=== PATIENT | female | born 1975 | race African-American/Black ===

== ENCOUNTER 2019-03-31 09:57 | Day surgery (SDC) | payer OTHER ==
[2019-03-30 17:20] VITALS: BMI 41.6
[2019-03-31 10:44] LABS: HEMATOCRIT 40.6 % (32.4-45.2); HEMOGLOBIN 13.2 GM/dL (10.7-15.3); MCH 28.7 pg (25.7-33.7); MCHC 32.6 g/dl (32.0-36.0); MEAN CELL VOLUME 88.1 fl (80-96); MEAN PLT VOLUME 9.6 fl (7.5-11.1); PLATELET COUNT 253 K/MM3 (134-434); RBC 4.61 M/mm3 (3.60-5.2); WHITE BLOOD COUNT 5.5 K/mm3 (4.0-10.0)
[2019-03-31 11:11] LABS: ALBUMIN 3.6 g/dl (3.4-5.0); BLOOD UREA NITROGEN 5.7 mg/dL (7-18); CALCIUM 8.9 mg/dL (8.5-10.1); CREATININE 0.6 mg/dL (0.55-1.3); POTASSIUM 3.9 mmol/L (3.5-5.1); TOT PROT 7.1 g/dl (6.4-8.2)
[2019-03-31] MEDS ORDERED: ACETAMINOPHEN 325 MG TABLET (FP) PO PRN (11:29)
[2019-03-31] MEDS ORDERED: IBUPROFEN 400 MG TABLET (FP) PO PRN (11:29)
--- NOTE | 2019-03-31 11:29 | HP ---
History & Physical Update - History History: No Change - Physical Physical: No Change - Assessment Assessment: No Change - Plan Plan: No Change (No change in HP)
[2019-03-31] MEDS ORDERED: KETOROLAC TROMETHAMINE 30 MG/1 ML VIAL ONE (11:38)
[2019-03-31] MEDS ORDERED: DEXAMETHASONE SOD PHOSPHATE 4 MG/1 ML VIAL ONE (11:38)
[2019-03-31] MEDS ORDERED: MIDAZOLAM HCL 2 MG/2 ML SINGLE DOSE VIAL ONE (11:38)
[2019-03-31] MEDS ORDERED: PROPOFOL 20 ML ONE ×2 (11:38)
[2019-03-31] MEDS ORDERED: ONDANSETRON 4 MG/2 ML VIAL IVPUSH PRN (12:47)
[2019-03-31] MEDS ORDERED: oxyCODONE HCL 5 MG TABLET PO PRN (12:47)
[2019-03-31] MEDS ORDERED: LACTATED RINGERS SOLUTION 1,000 ML IV SCH (13:00)
[2019-03-31] MEDS ORDERED: oxyCODONE HCL 5 MG TABLET ONE (13:03)
--- NOTE | 2019-03-31 13:08 | OP ---
DATE OF OPERATION: 03/31/2019 PREOPERATIVE DIAGNOSIS: Missed . OPERATION: Suction dilation and curettage. POSTOPERATIVE DIAGNOSIS: Missed . SURGEON: Jailyn Higgins MD ANESTHESIA: General. DESCRIPTION OF PROCEDURE: Patient was taken to the operating room, placed in dorsal lithotomy position, prepped and draped in the usual sterile fashion. Time-out was performed in accordance with hospital regulation. Speculum was placed in the vagina. Anterior lip of the cervix was grasped with a single-tooth tenaculum. Cervix was then dilated to accommodate the No. 7 suction curette. Suction curettage was then done followed by a sharp curettage. All contents were removed. Specimen was submitted to Pathology. All instruments were then removed. Patient had tolerated procedure well and was taken to recovery in stable condition. Estimated blood loss 30 mL. JAILYN HIGGINS M.D. [id number]
[2019-03-31 13:48] VITALS: TEMP 98.5
[2019-03-31 14:40] VITALS: BP 119/70; PULSE 62
--- NOTE | 2019-04-04 18:09 | PATH ---
Surgical Pathology Report Patient Name: MADELINE CISNEROS Med. Rec. #: [id number] /Age/Gender: 1975 (Age: 43) / F Account: [id number] Location: [facility] SURGICAL Taken: 03/31/2019 Received: 03/31/2019 Reported: 04/04/2019 Physicians: Jailyn Higgins M.D. Specimen(s) Received PRODUCTS OF CONCEPTION Clinical History Missed Final Diagnosis PRODUCTS OF CONCEPTION, SUCTION DILATION AND CURETTAGE: IMMATURE CHORIONIC VILLI AND DECIDUA CONSISTENT WITH PRODUCTS OF CONCEPTION. Electronically Signed Jocelyn Lopez M.D. Gross Description Received in formalin labeled "products of conception," is an 8.5 x 6.7 x 1.0 cm aggregate of sawyer-brown soft tissue fragments admixed with blood clot. Villous tissue is identified. No definite somatic tissue is identified. A small business representative portion is submitted in one cassette. 04/01/2019 saudi04/01/2019
== END 2019-03-31 15:20 | disposition home or self-care (01) ==
LOC: JASU-SURG 09:57
PROVIDERS: ATTEND Obstetrics & Gynecology
PROC: 10D17ZZ Extraction of Products of Conception, Retained, Via Natural or Artificial Opening (ICD-10-PCS; principal; 2019-03-31 12:30)
DX: O02.1 Missed abortion (principal)
CPT/HCPCS: 36415; 80053; 84703; 85027; 86850; 86900; 86901; 88305-TC; 94760

== ENCOUNTER 2020-03-01 10:44 | Emergency (ER) | payer OTHER ==
[2020-03-01 11:05] VITALS: BP 141/83; PULSE 61; TEMP 98.5; BMI 42.3
--- OUTSIDE RECORDS SUMMARY | 2020-03-01 11:39 | XMS ---
:1975 Author Organization [facility] Support Name Relationship Address Phone [facility] Unavailable [address] [place] [address] [address] [place] [address] Re-disclosure Warning The records that you are about to access may contain information from federally- assisted alcohol or drug abuse programs. If such information is present, then the following federally mandated warning applies: This information has been disclosed to you from records protected by federal confidentiality rules (42 CFR part 2). The federal rules prohibit you from making any further disclosure of this information unless further disclosure is expressly permitted by the written consent of the person to whom it pertains or as otherwise permitted by 42 CFR part 2. A general authorization for the release of medical or other information is NOT sufficient for this purpose. The Federal rules restrict any use of the information to criminally investigate or prosecute any alcohol or drug abuse patient.The records that you are about to access may contain highly sensitive health information, the redisclosure of which is protected by Article 27-F of the [facility] Public Health law. If you continue you may haveaccess to information: Regarding HIV / AIDS; Provided by facilities licensed or operated by the [facility] Office of Mental Health; or Provided by the [facility] Office for People With Developmental Disabilities. If such information is present, then the following [facility] mandated warning applies: This information has been disclosed to you from confidential records which are protected by state law. State law prohibits you from making any further disclosure of this information without the specific written consent of the person to whom it pertains, or as otherwise permitted by law. Any unauthorized further disclosure in violation of state law may result in a fine or mcc sentence or both. A general authorization for the release of medical or other information is NOT sufficient authorization for further disclosure. Insurance Providers Payer name Policy type / Policy ID Covered Covered democrat's Policy Plan Coverage type democrat ID relationship to [place] Information ja[place]gui [employer] HMO [id number] SP [id number] 3 Results ID Date Data Source [id number] 11/08/2019 03:18:00 PM EDT [facility] Name Value Range Interpretation Description Data Sup porting Code Source(s) Document(s ) [facility] Coronavirus 2 RNA Presence Respiratory Specimen ALFREDO Probe Detection This lab was ordered by [facility] and rep orted by [facility]. ID Date Data Source [id number] 11/04/2019 03:37:00 PM EDT [facility] Name Value Range Interpretation Description Data Sup porting Code Source(s) Document(s ) [facility] Coronavirus 2 RNA Presence Respiratory Specimen ALFREDO Probe Detection This lab was ordered by [facility] and rep orted by [facility]. ID Date Data Source [id number] 11/01/2019 04:49:00 PM EDT [facility] Name Value Range Interpretation Description Data Sup porting Code Source(s) Document(s ) [facility] Coronavirus 2 RNA Presence Respiratory Specimen ALFREDO Probe Detection This lab was ordered by [facility] and rep orted by [facility]. ID Date Data Source [id number] 10/29/2019 03:28:00 PM EDT [facility] Name Value Range Interpretation Description Data Sup porting Code Source(s) Document(s ) [facility] Coronavirus 2 RNA Presence Respiratory Specimen ALFREDO Probe Detection This lab was ordered by [facility] and rep orted by [facility]. ID Date Data Source [id number] 10/25/2019 03:43:00 PM EDT [facility] Name Value Range Interpretation Description Data Sup porting Code Source(s) Document(s ) [facility] Coronavirus 2 RNA Presence Respiratory Specimen ALFREDO Probe Detection This lab was ordered by [facility] and rep orted by [facility]. ID Date Data Source [id number] 10/21/2019 03:37:00 PM EDT [facility] Name Value Range Interpretation Description Data Sup porting Code Source(s) Document(s ) [facility] Coronavirus 2 RNA Presence Respiratory Specimen ALFREDO Probe Detection This lab was ordered by [facility] and rep orted by [facility]. ID Date Data Source [id number] 10/18/2019 03:21:00 PM EDT [facility] Name Value Range Interpretation Description Data Sup porting Code Source(s) Document(s ) [facility] Coronavirus 2 RNA Presence Respiratory Specimen ALFREDO Probe Detection This lab was ordered by [facility] and rep orted by [facility]. ID Date Data Source [id number] 10/14/2019 10:47:00 PM EDT [facility] Name Value Range Interpretation Description Data Sup porting Code Source(s) Document(s ) [facility] Coronavirus 2 RNA Presence Respiratory Specimen ALFREDO Probe Detection This lab was ordered by [facility] and rep orted by [facility]. ID Date Data Source [id number] 10/11/2019 10:51:00 AM EDT [facility] Name Value Range Interpretation Description Data Sup porting Code Source(s) Document(s ) [facility] Coronavirus 2 RNA Presence Respiratory Specimen ALFREDO Probe Detection This lab was ordered by [facility] and rep orted by [facility]. ID Date Data Source [id number] 10/07/2019 02:55:00 PM EDT [facility] Name Value Range Interpretation Description Data Sup porting Code Source(s) Document(s ) [facility] Coronavirus 2 RNA Presence Respiratory Specimen ALFREDO Probe Detection This lab was ordered by [facility] and rep orted by [facility]. ID Date Data Source [id number] 10/05/2019 05:10:00 PM EDT [facility] Name Value Range Interpretation Description Data Sup porting Code Source(s) Document(s ) [facility] Coronavirus 2 RNA Presence Respiratory Specimen ALFREDO Probe Detection This lab was ordered by [facility] and rep orted by [facility]. Procedure
[2020-03-01] MEDS ORDERED: KETOROLAC TROMETHAMINE 15 MG/ML VIAL IVPUSH ONE (12:18)
--- NOTE | 2020-03-01 12:20 | PDOC ---
History of Present Illness - General Chief Complaint: Pain, Acute Stated Complaint: LFT ARM PAIN Time Seen by Provider: 03/01/20 11:21 History Source: Patient - History of Present Illness Initial Comments: 03/01/20 12:49 One month of L arm pain Went urgent care today for COVID test Sent by urgent care Pain from neck down L arm no heavy liftying at work no pain control at home no numbness, weakness, paresthesias in the L arm Past History - Medical History Allergies/Adverse Reactions: Allergies Allergy/AdvReac Type Severity Reaction Status Date / Time No Known Drug Allergies Allergy Verified 03/01/20 11:01 Home Medications: Ambulatory Orders Nitrofurantoin Macrocrystal [Nitrofurantoin] 100 mg PO DAILY 03/30/19 Ibuprofen [Motrin -] 600 mg PO QID #28 tablet 03/31/19 Anemia: No Asthma: No Cancer: No Cardiac Disorders: No CVA: No COPD: No CHF: No Dementia: No Diabetes: No GI Disorders: No Disorders: Yes (current uti) HTN: No Hypercholesterolemia: No Liver Disease: No Seizures: No Thyroid Disease: No - Surgical History Abdominal Surgery: No Appendectomy: No Cardiac Surgery: No Cholecystectomy: No Lung Surgery: No Neurologic Surgery: No Orthopedic Surgery: No - Reproductive History Is Patient Now?: No - Psycho-Social/Smoking History Smoking History: Never smoked Have you smoked in the past 12 months: No - Substance Abuse Hx (Audit-C & DAST Scrn) How often the patient has a drink containing alcohol: Never Score: In Men: 4 or > Positive; In Women: 3 or > Positive: 0 Screen Result (Pos requires Nsg. Audit-10AR): Negative In the last yr the pt used illegal drug/Rx for NonMed reason: No Score: Yes response is considered Positive: 0 Screen Result (Positive result requires Nsg. DAST-10): Negative *Physical Exam - Vital Signs Last Vital Signs Temp Pulse Resp BP Pulse Ox 98.5 F 61 18 141/83 98 03/01/20 11:02 03/01/20 11:02 03/01/20 11:02 03/01/20 11:02 03/01/20 11:02 ED Treatment Course - LABORATORY CBC & Chemistry Diagram: 03/01/20 12:15 03/01/20 12:15 - RADIOLOGY Radiology Studies Ordered: Category Date Time Status CHEST PA & LAT [RAD] Stat Radiology 03/01/20 12:17 Ordered SHOULDER-LEFT [RAD] Stat Radiology 03/01/20 12:07 Ordered Discharge - Discharge Information Problems reviewed: Yes Clinical Impression/Diagnosis: Arm pain, Arm pain, left Condition: Stable Disposition: HOME - Admission No - Follow up/Referral Referrals: Vanessa Yung [Primary Care Provider] - Tavo Leone MD [Staff Physician] - - Patient Discharge Instructions Patient Printed Discharge Instructions: DI for Musculoskeletal Pain Additional Instructions: As discussed, please follow up with Dr. Yung within 3-4 days. We have also included a referral for cardiology. Call to make an appointment within 1 week. Take your labs and EKG to the appointment with you. Return to emergency department if you have any new, worsening or concerning symptoms. We hope you feel better soon. Dr. Rowe/Jessica - Post Discharge Activity
[2020-03-01] MEDS ORDERED: KETOROLAC TROMETHAMINE 15 MG/ML VIAL ONE (12:28)
[2020-03-01 12:31] LABS: BASO % 1.7 % (0-2.0); EOS % 1.7 % (0-4.5); HEMATOCRIT 39.5 % (32.4-45.2); HEMOGLOBIN 12.9 GM/dL (10.7-15.3); LYMPH % 35.4 % (8-40); MCH 28.8 pg (25.7-33.7); MCHC 32.7 g/dl (32.0-36.0); MEAN CELL VOLUME 87.9 fl (80-96); MEAN PLT VOLUME 9.6 fl (7.5-11.1); MONO % 7.2 % (3.8-10.2); PLATELET COUNT 256 K/MM3 (134-434); WHITE BLOOD COUNT 5.1 K/mm3 (4.0-10.0)
[2020-03-01 12:58] LABS: ALBUMIN 3.4 g/dl (3.4-5.0); ALK PHOS 60 U/L (45-117); ANION GAP 3 MMOL/L (8-16); BLOOD UREA NITROGEN 11.1 mg/dL (7-18); CHLORIDE 106 mmol/L (98-107); CO2 27 mmol/L (21-32); CREATININE 0.8 mg/dL (0.55-1.3); GLUCOSE,RANDOM 85 mg/dL (74-106); POTASSIUM 4.5 mmol/L (3.5-5.1); SGOT/AST 23 U/L (15-37); SGPT/ALT 18 U/L (13-61); SODIUM 137 mmol/L (136-145); TOT PROT 7.4 g/dl (6.4-8.2)
--- NOTE | 2020-03-01 14:00 | PDOC ---
Documentation entered by Kan Altamirano SCRIBE, acting as scribe for Carlos Rowe MD. Carlos Rowe MD: This documentation has been prepared by the Evelia buck Angel, SCRIBE, under my direction and personally reviewed by me in its entirety. I confirm that the documentation accurately reflects all work, treatment, procedures, and medical decision making performed by me. Attending Attestation - Resident Resident Name: Amauri Lopez - ED Attending Attestation I have performed the following: I have examined & evaluated the patient, The case was reviewed & discussed with the resident, I agree w/resident's findings & plan, Exceptions are as noted - HPI HPI: 03/01/20 13:05 The patient is a 44 year old female with no significant past medical history who presents to the ED from Urgent Care for evaluation of left arm pain and abnormal EKG. The patient states she has had this left arm pain since August/September but denies any strenuous activities or trauma. The patient states the pain radiates from her neck down her left arm and can be triggered when looking towards the right. Does not radiate towards her chest. She states the pain lasts for a few seconds to a minute at a time and self resolves. No treatments tried. Patient states the pain is worse on movement but still has full ROM. Denies numbness or weakness to the arm. Today, the patient went to Urgent Care for a COVID-19 test and also got an EKG done which was abnormal (per report, TWI in V1 and V2). The patient was then referred to our ED for further evaluation. Denies CP/SOB, associated N/V, diaphoresis, dizziness, palpitations, LE edema, recent travel, immobility. Denies family hx of cardiac disease at a young age. Denies smoking, drug use. The patient denies fever/chills, headache, focal weakness/numbness. PMD: Dr. Yung Social: Denies tobacco, drugs, etoh. 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 Well appearing HEAD: No signs of trauma EYES: PERRLA, EOMI, sclera anicteric, conjunctiva clear ENT: Auricles normal inspection, hearing grossly normal, nares patent, oropharynx clear without exudates. Moist mucosa NECK: Normal ROM, supple, no lymphadenopathy, JVD, or masses. +pain from trap to posterior arm when ranging neck to the right LUNGS: Breath sounds equal, clear to auscultation bilaterally. No wheezes, and no crackles HEART: Regular rate and rhythm, normal S1 and S2, no murmurs, rubs or gallops ABDOMEN: Soft, nontender, normoactive bowel sounds. No guarding, no rebound. No masses EXTREMITIES: Normal range of motion, no edema. No clubbing or cyanosis. No cords, erythema, or tenderness BACK: No midline spinal tenderness in cervical/thoracic/lumbar region. No paraspinal tenderness to palpaction NEUROLOGICAL: Normal speech, cranial nerves intact, 5/5 strength in all 4 extremities, normal sensation to light touch in all 4 extremities, normal cerebellar exam, normal gait SKIN: Warm, Dry, normal turgor, no rashes or lesions noted. - Medical Decision Making 03/01/20 13:52 44yo F presents to the ED with left arm pain for 7 months intermittently. The patient presented to urgent care for a Covid swab and when she complained of the left arm pain, an EKG was obtained that revealed a T wave inversion in V2. This prompted them to send the patient to the emergency department for cardiac evaluation. Vitals within normal limits. Exam with pain to posterior arm with ranging of the head towards the right. She also has tenderness to palpation to the L trap and the left posterior shoulder she has normal strength and sensation in the upper extremities. She has 2+ pulses peripherally in all extremities. Likely cervical radiculopathy or musculoskeletal pain, but given patient is obese and possibility of atypical cardiac pain, a troponin was sent which was negative. A chest x-ray was within normal limits. Her EKG shows an isolated T wave inversion in V2 but no other findings and is stable compared to her EKG from urgent care. Her heart score is 2. She has good follow-up with Dr. Yung and will follow up early next week. We have also referred her to a arboriculture instructor and have given her her EKG and labs to bring to her appointment. At this time patient is asymptomatic and feels well. She is clinically well- appearing and stable for discharge home. I discussed the physical exam findings, ancillary test results and final diagnoses with the patient. I answered all of the patient's questions. The patient was satisfied with the care received and felt comfortable with the discharge plan and treatment plan. The patient will call their primary care physician within 24 hours to arrange follow-up and will return to the Emergency Department with any new, persistent or worsening symptoms. Heart Score/ECG Review - History History: Moderately suspicious - Electrocardiogram EKG: Normal - Age Age: </= 45 - Risk Factors Based on the list above the patient has:: 1-2 risk factors - Troponin Troponin: </= normal limit - Score Heart Score - Total: 2 #1 03/01/20 13:53 Twelve-lead EKG was performed and reviewed by me. Normal sinus rhythm, rate 62. Normal axis and intervals. No ST elevations. T wave inversion in V2. Stable compared to EKG done at urgent care Discharge - Discharge Information Problems reviewed: Yes Clinical Impression/Diagnosis: Arm pain, left Condition: Stable Disposition: HOME - Follow up/Referral Referrals: Vanessa Yung [Primary Care Provider] - - Patient Discharge Instructions Additional Instructions: As discussed, please follow up with Dr. Yung within 3-4 days. We have also included a referral for cardiology. Call to make an appointment within 1 week. Take your labs and EKG to the appointment with you. Return to emergency department if you have any new, worsening or concerning symptoms. We hope you feel better soon. Dr. Rowe/Jessica - Post Discharge Activity
--- NOTE | 2020-03-01 14:52 | EKG ---
Test Reason : Blood Pressure : / mmHG Vent. Rate : 062 BPM Atrial Rate : 062 BPM P-R Int : 120 ms QRS Dur : 090 ms QT Int : 420 ms P-R-T Axes : 014 031 032 degrees QTc Int : 426 ms NORMAL SINUS RHYTHM NORMAL ECG WHEN COMPARED WITH ECG OF 19-AUG-2012 18:16, NO SIGNIFICANT CHANGE WAS FOUND Confirmed by PIO KNOTT MD ([id number]) on 03/01/2020 2:52:30 PM Referred By: Confirmed By:PIO KNOTT MD
== END 2020-03-01 14:07 | disposition home or self-care (01) ==
LOC: JER 10:44
PROC: 3E0333Z Introduction of Anti-inflammatory into Peripheral Vein, Percutaneous Approach (ICD-10-PCS; principal; 2020-03-01)
DX: M79.602 Pain in left arm (principal)
CPT/HCPCS: 36415; 71046-TC-FY; 73030-TC-LT-FY; 80053; 84484; 85025; 93005; 93010; 99285-25

== ENCOUNTER 2023-04-07 11:50 | Emergency (ER) | payer OTHER ==
[2023-04-07 12:20] VITALS: TEMP 98.7; BMI 37.5
[2023-04-07] MEDS ORDERED: ACETAMINOPHEN 1000 MG/100 ML BAG IVPB ONE (12:50)
[2023-04-07] MEDS ORDERED: SODIUM CHLORIDE 0.9% 500 ML INFUS.BAG IV ONE (12:50)
[2023-04-07] MEDS ORDERED: ACETAMINOPHEN INJECTION 100 ML IVPB ONE (13:06)
[2023-04-07 15:27] LABS: EOS % 2.1 % (0-4.5); HEMATOCRIT 38.8 % (32.4-45.2); HEMOGLOBIN 12.4 GM/dL (10.7-15.3); LYMPH % 34.3 % (8-40); MCHC 31.9 g/dl (32.0-36.0); MEAN CELL VOLUME 87.8 fl (80-96); MONO % 9.3 % (3.8-10.2); NEUT % 53.3 % (42.8-82.8); PLATELET COUNT 272 10^3/uL (134-434); RBC 4.42 M/mm3 (3.60-5.2); RDW 13.8 % (11.6-15.6); WHITE BLOOD COUNT 4.2 K/mm3 (4.0-10.0)
[2023-04-07 15:35] LABS: INR 1.05 (0.83-1.09); PROTHROMBIN TIME (PATIENT) 12.2 SEC (9.7-13.0)
[2023-04-07 15:38] LABS: ACTIVATED PTT 27.7 SECONDS (25.2-36.5)
[2023-04-07 16:00] LABS: POTASSIUM 4.2 mmol/L (3.5-5.1)
[2023-04-07 16:02] LABS: CALCIUM 8.7 mg/dL (8.5-10.1)
[2023-04-07 16:03] LABS: ALBUMIN 3.2 g/dl (3.4-5.0); BLOOD UREA NITROGEN 7.4 mg/dL (7-18)
[2023-04-07 16:04] LABS: EPI CELLS >36 /uL (0-25.1); HYALINE CASTS 0 /uL (0-3.1); PH,URINE 6.5 (5.0-8.0); URINE APPEARANCE CLEAR; URINE BACTERIA 1466 /uL (0-1359); URINE BILIRUBIN NEGATIVE (NEGATIVE); URINE COLOR YELLOW; URINE GLUCOSE (UA) NEGATIVE (NEGATIVE); URINE KETONE NEGATIVE (NEGATIVE); URINE LEUK ESTERASE NEGATIVE (NEGATIVE); URINE NITRITE NEGATIVE (NEGATIVE); URINE PROTEIN NEGATIVE (NEGATIVE); URINE RBC 20 /uL (0-23.9); URINE WBC 13 /uL (0-25.8)
[2023-04-07 16:07] LABS: BILIRUBIN,TOTAL 0.5 mg/dL (0.2-1); CREATININE 0.6 mg/dL (0.55-1.3); PHOSPHOROUS 2.8 mg/dL (2.5-4.9); TOT PROT 6.3 g/dl (6.4-8.2)
[2023-04-07 16:52] VITALS: BP 143/98; PULSE 66; RESP 19
== END 2023-04-07 17:00 | disposition home or self-care (01) ==
LOC: JER 11:50
PROC: 3E033NZ Introduction of Analgesics, Hypnotics, Sedatives into Peripheral Vein, Percutaneous Approach (ICD-10-PCS; principal; 2023-04-07)
PROC: 3E033GC Introduction of Other Therapeutic Substance into Peripheral Vein, Percutaneous Approach (ICD-10-PCS; 2023-04-07)
DX: R03.0 Elevated blood-pressure reading, without diagnosis of hypertension (principal); R51.9 Headache, unspecified; R20.2 Paresthesia of skin; Z20.822 Contact with and (suspected) exposure to COVID-19
CPT/HCPCS: 0241U-QW; 36415; 70450-TC; 71045-TC-FY; 72125-TC; 80053; 81003; 83735; 84100; 84484; 85025; 85610; 85730; 87086; 93005; 93010; 99285-25